=== PATIENT | male | born 1945 | race Caucasian/White ===

== ENCOUNTER 2021-11-23 08:39 | Day surgery (SDC) | payer OTHER ==
[~2021-11-23] VITALS: Ht 182.9 cm; Wt 88.5 kg
[~2021-11-23 08:39] MED LIST: ATOR20TA PO; B-CO-15 OR; CHOL20007 PO; COEN400C8 OR; DONETAB6 PO; LOSA25TA38 PO; METO25TA5 PO; MULT-1018 PO; OMEP-263 PO
[2021-11-23] MEDS ORDERED: LIDOCAINE VISCOUS 2% 15ML UD MT ONE (09:00)
[2021-11-23] MEDS ORDERED: fentaNYL CITRATE 100 MCG/2 ML VL IV ONE (09:00)
[2021-11-23] MEDS ORDERED: MIDAZOLAM HCL 2MG/2ML 2ml VIAL (1mg/ml) IV ONE (09:00)
== END 2021-11-23 10:40 | disposition home or self-care (01) ==
LOC: CATH 08:39
PROVIDERS: ATTEND Internal Medicine Cardiovascular Disease
DX: I35.9 Nonrheumatic aortic valve disorder, unspecified (principal); I10 Essential (primary) hypertension; E78.5 Hyperlipidemia, unspecified; K21.9 Gastro-esophageal reflux disease without esophagitis; I27.20 Pulmonary hypertension, unspecified; Z87.891 Personal history of nicotine dependence; Z20.822 Contact with and (suspected) exposure to COVID-19
CPT/HCPCS: 93312; J2250; J3010; J7050; U0003; 99152

== ENCOUNTER 2021-11-26 07:06 | Day surgery (SDC) | payer OTHER ==
[~2021-11-26] VITALS: Ht 182.9 cm; Wt 88.5 kg
[2021-11-26] MEDS ORDERED: IODIXANOL 320MG/ML 100ML BTL IV ONE (09:03)
[2021-11-26] MEDS ORDERED: LIDOCAINE 2%HCL (LOCAL ANESTH.) INJ 20ML MDV ONE (09:03)
[2021-11-26] MEDS ORDERED: ANGIOMAX 250 MG VIAL IV ONE (09:11)
[2021-11-26] MEDS ORDERED: VERAPAMIL 2.5MG/ML INJ 2ML VIAL IV ONE (09:11)
[2021-11-26] MEDS ORDERED: HEPARIN SODIUM (PORCINE) 5000 UNITS/ML 1ML VIAL ONE (09:11)
[2021-11-26] MEDS ORDERED: fentaNYL CITRATE 100 MCG/2 ML VL ONE (09:12)
[2021-11-26] MEDS ORDERED: MIDAZOLAM HCL 2MG/2ML 2ml VIAL (1mg/ml) ONE (09:12)
== END 2021-11-26 11:55 | disposition home or self-care (01) ==
LOC: CATH 07:06
PROVIDERS: ATTEND Internal Medicine Cardiovascular Disease
DX: R06.02 Shortness of breath (principal); I35.9 Nonrheumatic aortic valve disorder, unspecified; I10 Essential (primary) hypertension; E78.5 Hyperlipidemia, unspecified; M19.90 Unspecified osteoarthritis, unspecified site; K21.9 Gastro-esophageal reflux disease without esophagitis; I27.20 Pulmonary hypertension, unspecified; Z87.891 Personal history of nicotine dependence; Z20.822 Contact with and (suspected) exposure to COVID-19
CPT/HCPCS: 93458; C1887; C1894; J1644; J2250; J3010; Q9967; 99152